=== PATIENT | female | born 1965 | race Caucasian/White ===

== ENCOUNTER → 2021-10-22 10:45 | Outpatient (CLI) | payer OTHER, SELFPAY ==
--- NOTE | 2021-10-22 10:47 | DI.US.S_ITS ---
PROCEDURE: US PELVIC COMPLETE INDICATIONS: PRESSURE TECHNIQUE: Real-time scanning was performed of the pelvic organs, with image documentation. Additional endovaginal scanning was necessary due to incomplete visualization of the adnexal and endometrial structures by transabdominal scanning. COMPARISON: None. FINDINGS: Uterus: Uterus is retroverted and normal in size at 7.4 x 6.5 x 6.1 cm. The myometrium is heterogeneous. Left posterior intramural fibroid measuring 2.6 x 2.6 x 2.5 cm. Right anterior intramural fibroid measuring 2.8 x 2.3 x 1.9 cm. The endometrium measures 9 mm combined thickness. Ovaries: Right ovary is not seen. The left ovary measures 2.5 x 1.2 x 1.2 cm. Less than 12 follicles can be seen in each ovary. Blood flow seen in the left ovary. No adnexal masses are seen. Other: Trace free fluid within physiologic limits. IMPRESSION: 1. At least 2 intramural fibroids measuring 2.8 cm and 2.8 cm. 2. Endometrium measures 9 mm. 3. Sonographic appearance of the left ovary is within normal limits. Right ovary is not seen. We strive to produce accurate, complete, and clear reports of imaging services. To assist us in improving patient care, this report was composed using standard report templates and voice recognition software. Therefore, it may contain abnormal punctuation, insertions and/or omissions. Occasional wrong-word or sound-alike substitutions may occur. Though we review the report and make efforts to correct it, we do recommend that the report be read carefully in proper context to recognize any text inaccuracies. Dictated by: Jame Dickens M.D. on 10/22/2021 at 14:58 Approved by: Jame Dickens M.D. on 10/22/2021 at 15:02
== END ==
PROVIDERS: PCP Internal Medicine; Referring Provider Obstetrics & Gynecology; Visit Provider Obstetrics & Gynecology
DX: D25.1 Intramural leiomyoma of uterus (principal); R10.2 Pelvic and perineal pain
CPT/HCPCS: 76830; 76856

== ENCOUNTER → 2022-03-07 09:53 | Outpatient (CLI) | payer OTHER, SELFPAY ==
--- NOTE | 2022-03-07 09:56 | DI.US.S_ITS ---
PROCEDURE: US PELVIC COMPLETE INDICATIONS: uterine bleeding TECHNIQUE: Real-time scanning was performed of the pelvic organs, with image documentation. Additional endovaginal scanning was necessary due to incomplete visualization of the adnexal and endometrial structures by transabdominal scanning. COMPARISON: [facility], CT, KUB - CT (PNL), 06/05/2013, 7:04. [facility], US, US PELVIC COMPLETE WITH TRANSVAGINAL, 05/05/2017, 8:50. [facility], US, US PELVIC COMPLETE, 10/22/2021, 11:14. FINDINGS: Uterus: Uterus appears retroverted anteflexed and normal in size at 8.6 x 4.6 x 5.2 cm. The myometrium is homogeneous. Possible uterine variant anatomy such as arcuate, septate, or bicornuate uterus with possible appearance of two uterine horns/septation. The endometrium measures up to 9 mm combined thickness. No focal endometrial lesion or abnormal vascularity is visualized. Left posterior uterine fibroid measures 2.5 x 2.2 x 2.3 centimeters. Likely intramural, no definitive submucosal component identified. Right anterior uterine fibroid measures 2.0 x 2.0 x 2.3 centimeters. Intramural. May abut the endometrium. Ovaries: The right ovary measures 2.0 x 0.9 x 1.5 cm, with a calculated ovarian volume of 1 cc. The left ovary measures 2.0 x 1.3 x 1.3 cm, with a calculated ovarian volume of 2 cc. The ovaries have a normal sonographic appearance for age. No adnexal masses are seen. Other: No pathologic free abdominal or pelvic fluid. IMPRESSION: 1. The endometrium measures up to 9 millimeters in thickness, without a focal lesion or abnormal vascularity identified sonographically. This thickness would be considered abnormal for a postmenopausal woman with bleeding. For a premenopausal woman, this endometrial thickness would be within normal limits. 2. Possible uterine variant anatomy such as arcuate, septate, or bicornuate uterus. This is difficult to fully characterize by ultrasound. MRI of the pelvis, gynecologic protocol, can be obtained if clinically indicated. 3. Unremarkable sonographic appearance of the ovaries for age. We strive to produce accurate, complete, and clear reports of imaging services. To assist us in improving patient care, this report was composed using standard report templates and voice recognition software. Therefore, it may contain abnormal punctuation, insertions and/or omissions. Occasional wrong-word or sound-alike substitutions may occur. Though we review the report and make efforts to correct it, we do recommend that the report be read carefully in proper context to recognize any text inaccuracies. Dictated by: Colton Bran M.D. on 03/07/2022 at 19:52 Approved by: Colton Bran M.D. on 03/07/2022 at 20:08
== END ==
PROVIDERS: PCP Internal Medicine; Referring Provider Obstetrics & Gynecology; Visit Provider Obstetrics & Gynecology
DX: D25.9 Leiomyoma of uterus, unspecified (principal); R93.89 Abnormal findings on diagnostic imaging of other specified body structures; N95.1 Menopausal and female climacteric states
CPT/HCPCS: 76830; 76856